=== PATIENT | male | born 1995 | race Caucasian/White ===

== ENCOUNTER 2022-05-29 23:30 | Emergency (ER) | payer SELFPAY ==
[~2022-05-29] VITALS: Ht 170.2 cm; Wt 68.0 kg
[2022-05-29 23:34] VITALS: BP 135/70
--- NOTE | 2022-05-29 23:35 | NUR ---
PT [facility] BLS. TAKEN TO BED 5
--- NOTE | 2022-05-29 23:40 | NUR ---
26 yo m scott from home with c/c of 10/10 general body pain s/p withdrawing from fentyl. pt states he uses fentyl daily via nasal route, last he used was 2-3days ago. pt states he also takes xanax oral lt everyday, last used abput 2-3days. hx:anxiety rx:xanax nka
--- NOTE | 2022-05-29 23:43 | NUR ---
Dr. Yu examining patient.
[2022-05-29] MEDS ORDERED: diphenhydrAMINE 50 MG/ML VIAL IM ONE (23:50)
[2022-05-29] MEDS ORDERED: LORazepam 2 MG/ML VIAL IM ONE (23:50)
[2022-05-29] MEDS ORDERED: HALOPERIDOL IM 5 MG/ML VIAL IM ONE (23:50)
--- NOTE | 2022-05-30 00:07 | NUR ---
pt medicated per orders. given warm blanket.
--- NOTE | 2022-05-30 01:56 | NUR ---
pt appears to be resting with eyes closed, opens to touch. equal rise and fall of chest wall. bed locked in lowest position for safety, all needs met at this time.
--- NOTE | 2022-05-30 05:58 | NUR ---
pt is ambulatory, a&ox4. offered pt food, pt stated its ok. clothing appropriate.
[2022-05-30 06:01] VITALS: BP 142/83
--- NOTE | 2022-05-30 06:01 | NUR ---
Patient discharged with v/s stable. Written and verbal after care instructions given and explained. Patient verbalized understanding. Ambulatory with steady gait. All questions addressed prior to discharge. Advised to follow up with PMD.
== END 2022-05-30 06:01 | disposition home or self-care (01) ==
LOC: MED 23:30
DX: F15.23 Other stimulant dependence with withdrawal (principal)
CPT/HCPCS: 96372; 99285; J1200; J1630; J2060

== ENCOUNTER 2022-05-30 09:27 | Emergency (ER) | payer MEDICAID ==
[~2022-05-30] VITALS: Ht 172.7 cm; Wt 68.0 kg
[2022-05-30 09:30] VITALS: BP 139/65
--- NOTE | 2022-05-30 09:33 | NUR ---
BIBA TAKEN TO BED 7
--- NOTE | 2022-05-30 09:35 | NUR ---
Dr Montalvo at bedside for evaluation
--- NOTE | 2022-05-30 09:40 | NUR ---
26 y/o male bibviji w c/o 05/11 generalized body aches. Pt presents with pinpoint pupils and reports he is withdrawing from Fentanyl and Benzodiazepines. GSC 14. Discharged from [facility] at 5am, today, denies other drug or alcohol use. Denies nvd, fever, chills, sob. Placed in gown with seizure pads in place. nka pmh: denies meds: unknown
--- NOTE | 2022-05-30 11:59 | NUR ---
pt a/o x4, able to ambulate without assistance. Food offered and accepted.
[2022-05-30 12:05] VITALS: BP 118/75
--- NOTE | 2022-05-30 12:05 | NUR ---
Pt provided uber and taken to [facility].
== END 2022-05-30 12:05 | disposition home or self-care (01) ==
LOC: MED 09:27
DX: R53.81 Other malaise (principal); F17.200 Nicotine dependence, unspecified, uncomplicated; Z59.00 Homelessness unspecified
CPT/HCPCS: 99282; 99283